=== PATIENT | female | born 1930 | race Caucasian/White ===

== ENCOUNTER 2017-04-11 13:09 | Observation (INO) | payer MEDICARE, OTHER ==
--- NOTE | 2017-04-11 14:09 | RAD ---
INDICATION: Ataxia. COMPARISON: Comparison is made with a prior CT of the brain from September 24, 2002. TECHNIQUE: Contiguous axial sections of the brain were obtained from the skull base to the vertex without contrast. FINDINGS: The ventricles, cisterns and sulci are enlarged consistent with diffuse atrophy. No significant focal abnormality or mass effect is seen. There is no evidence for hemorrhage. No significant focal osseous abnormality is seen. The visualized portion of the paranasal sinuses and mastoid air cells appear clear. IMPRESSION: NO EVIDENCE FOR ACUTE INTRACRANIAL ABNORMALITY.
[2017-04-11 15:10] LABS: Hematocrit 39 % (35-47); Mean Corpuscular HGB Conc 34 g/dl (31-36); Mean Corpuscular Hemoglobin 30 pg (27-31); Mean Corpuscular Volume 89 fL (80-97); Mean Platelet Volume 8 um3 (7.4-10.4); Red Blood Count 4.34 10^6/ul (4.0-5.4); Red Cell Distribution Width 14 % (10.5-15); White Blood Count 15.8 10^3/ul (3.5-10.8)
[2017-04-11 15:26] LABS: Troponin I 0.18 ng/mL (<0.04)
[2017-04-11 15:52] LABS: TSH (Thyroid Stimulating Horm) 0.33 mcIU/mL (0.34-5.60)
[2017-04-11 16:27] LABS: Albumin 4.3 g/dL (3.2-5.2); BUN/Creatinine Ratio 25.5 (8-20); Calcium 9.5 mg/dL (8.6-10.3); EGFR African American 60.6 (>60); EGFR Non-African American 47.1 (>60); Potassium 3.6 mmol/L (3.5-5.0); Total Bilirubin 0.6 mg/dL (0.2-1.0); Total Protein 7.3 g/dL (6.4-8.9)
--- NOTE | 2017-04-11 16:37 | RAD ---
INDICATION: Weakness. COMPARISON: Comparison is made with a prior chest x-ray study from October 24, 2006. TECHNIQUE: AP and lateral views of the chest were obtained. FINDINGS: Cardiac and mediastinal contours appear within normal limits. The lungs are hyperinflated and clear. No pleural effusion is seen. The patient appears to be status post left axillary node dissection. IMPRESSION: NO EVIDENCE FOR ACTIVE CARDIOPULMONARY DISEASE.
[2017-04-11 16:55] LABS: Urine Bacteria Absent (Absent); Urine Bilirubin Negative (Negative); Urine Glucose Negative (Negative); Urine Nitrite Negative (Negative)
[2017-04-11 17:22] LABS: Benzodiazepine Urine Screen None Detected (None Detect)
--- NOTE | 2017-04-11 17:47 | ED ---
Gail Patiño Abhishek, scribed for Ozzie Sinha MD on 04/11/17 at 1354 . Lower Extremity - HPI Summary HPI Summary: his patient is a 87 year old F presenting to [facility] with a chief complaint of weakness in the lower extremity since last night. Symptoms aggravated by nothing. Symptoms alleviated by nothing. Patient reports non-ambulatory, edema in the left arm, pain in the back (tail bone). Pt states she has been feeling wobbly, could not get up And her leg feels like they are wrapped in parafilm. Pt reports she fell in the living room today an hour ago. PMHx includes myalgia, osteoporosis, arthritis, and Stage 1 Breast cancer. 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 [employer] Mechanism Of Injury: Fall From A Standing Position - one hour ago Onset of Pain: Days Onset/Duration: Hours - Since last night Severity Initially: Mild Severity Currently: Mild Pain Intensity: 4 Pain Scale Used: 0-10 Numeric Timing: Constant Location: Other - Weakness primarily in lower extremities Associated Signs And Symptoms: Positive: Bruising - edema s/p fall, Weakness - lower extremities, Dizziness Aggravating Factor(s): Nothing Alleviating Factor(s): Nothing - Allergies/Home Medications Allergies/Adverse Reactions: Allergies Allergy/AdvReac Type Severity Reaction Status Date / Time No Known Allergies Allergy Verified 04/11/17 13:16 PMH/Surg Hx/FS Hx/Imm Hx Musculoskeletal History: Reports: Hx Osteoporosis, Hx Scoliosis, Other Musculoskeletal History EENT History: Reports: Other - Negative Glaucoma Neurological History: Denies: Hx Headaches, Other Neuro Impairments/Disorders - Cancer History Cancer Type, Location and Year: Stage 1 Breast Cancer Hx Radiation Therapy: Yes - 6 WEEKS Infectious Disease History: No Infectious Disease History: Denies: Traveled Outside the [place] in Last 30 Days - Social History Alcohol Use: None Substance Use Type: Reports: None Smoking Status (MU): Never Smoked Tobacco Review of Systems Constitutional: Negative Eyes: Negative ENT: Negative Cardiovascular: Negative Respiratory: Negative Gastrointestinal: Negative Genitourinary: Negative Positive: Myalgia - lower back (occyx), Edema - edema on her arm s/p fall, Other - Pt states her leg feels like they are wrapped in parafilm. Skin: Negative Positive: Weakness - lower extermitis (both); Pt states she has been feeling wobbly, could not get up s/p fall Psychological: Normal All Other Systems Reviewed And Are Negative: Yes Physical Exam - Summary Physical Exam Summary: Appearance: Well-appearing, no pain distress IF BMI > 30 = obese Skin: Warm, dry, color reflects adequate perfusion Head/face: Nml head/face Eyes: Nml eyes ENT: Nml ENT Neck: Supple, non-tender Respiratory: CTA, breath sound present Cardiovascular: RRR Abdomen: Abd soft, non-tender, Bowel: Bowel sounds + Musculoskeletal: Weak with her proximal leg muscles Neurological: Unsteady on her feet Psychiatric: Nml psychiatric, affect/mood appropriate Triage Information Reviewed: Yes Vital Signs On Initial Exam: Initial Vitals Temp Pulse Resp BP Pulse Ox 97.6 F 110 17 130/62 97 04/11/17 13:14 04/11/17 13:14 04/11/17 13:14 04/11/17 13:14 04/11/17 13:14 Vital Signs Reviewed: Yes - Ham Coma Scale Coma Scale Total: 15 Diagnostics - Vital Signs Vital Signs Temp Pulse Resp BP Pulse Ox 04/11/17 13:14 97.6 F 110 17 130/62 97 - Laboratory Lab Results: Lab Results 04/11/17 04/11/17 04/11/17 Range/Units 14:51 14:51 14:51 WBC 15.8 H (3.5-10.8) 10^3/ul RBC 4.34 (4.0-5.4) 10^6/ul Hgb 13.0 (12.0-16.0) g/dl Hct 39 (35-47) % MCV 89 (80-97) fL MCH 30 (27-31) pg MCHC 34 (31-36) g/dl RDW 14 (10.5-15) % Plt Count 274 (150-450) 10^3/ul MPV 8 (7.4-10.4) um3 Neut % (Auto) 86.2 H (38-83) % Lymph % (Auto) 4.6 L (25-47) % [place] % (Auto) 8.5 (1-9) % Eos % (Auto) 0 (0-6) % Baso % (Auto) 0.7 (0-2) % Absolute Neuts (auto) 13.6 H (1.5-7.7) 10^3/ul Absolute Lymphs (auto) 0.7 L (1.0-4.8) 10^3/ul Absolute Monos (auto) 1.4 H (0-0.8) 10^3/ul Absolute Eos (auto) 0 (0-0.6) 10^3/ul Absolute Basos (auto) 0.1 (0-0.2) 10^3/ul Absolute Nucleated RBC 0 10^3/ul Nucleated RBC % 0 INR (Anticoag Therapy) (0.89-1.11) Sodium 140 (133-145) mmol/L Potassium 3.6 (3.5-5.0) mmol/L Chloride 106 (101-111) mmol/L Carbon Dioxide 23 (22-32) mmol/L Anion Gap 11 (2-11) mmol/L BUN 28 H (6-24) mg/dL Creatinine 1.10 H (0.51-0.95) mg/dL Est GFR ( Amer) 60.6 (>60) Est GFR (Non-Af Amer) 47.1 (>60) BUN/Creatinine Ratio 25.5 H (8-20) Glucose 113 H (70-100) mg/dL Lactic Acid 1.9 (0.5-2.0) mmol/L Calcium 9.5 (8.6-10.3) mg/dL Total Bilirubin 0.60 (0.2-1.0) mg/dL AST 68 H (13-39) U/L ALT 22 (7-52) U/L Alkaline Phosphatase 95 (34-104) U/L Troponin I 0.18 H* (<0.04) ng/mL Total Protein 7.3 (6.4-8.9) g/dL Albumin 4.3 (3.2-5.2) g/dL Globulin 3.0 (2-4) g/dL Albumin/Globulin Ratio 1.4 (1-3) TSH 0.33 L (0.34-5.60) mcIU/mL Urine Color Urine Appearance Urine pH (5-9) Ur Specific [place] (1.010-1.030) Urine Protein (Negative) Urine Ketones (Negative) Urine Blood (Negative) Urine Nitrate (Negative) Urine Bilirubin (Negative) Urine Urobilinogen (Negative) Ur Leukocyte Esterase (Negative) Urine WBC (Auto) (Absent) Urine RBC (Auto) (Absent) Ur Squamous Epith Cells (Absent) Urine Bacteria (Absent) Urine Glucose (Negative) Urine Opiates Screen (None Detect) Ur Barbiturates Screen (None Detect) Ur Phencyclidine Scrn (None Detect) Ur Amphetamines Screen (None Detect) U Benzodiazepines Scrn (None Detect) Urine Cocaine Screen (None Detect) U Cannabinoids Screen (None Detect) 04/11/17 04/11/17 04/11/17 Range/Units 14:51 16:39 16:39 WBC (3.5-10.8) 10^3/ul RBC (4.0-5.4) 10^6/ul Hgb (12.0-16.0) g/dl Hct (35-47) % MCV (80-97) fL MCH (27-31) pg MCHC (31-36) g/dl RDW (10.5-15) % Plt Count (150-450) 10^3/ul MPV (7.4-10.4) um3 Neut % (Auto) (38-83) % Lymph % (Auto) (25-47) % [place]he % (Auto) (1-9) % Eos % (Auto) (0-6) % Baso % (Auto) (0-2) % Absolute Neuts (auto) (1.5-7.7) 10^3/ul Absolute Lymphs (auto) (1.0-4.8) 10^3/ul Absolute Monos (auto) (0-0.8) 10^3/ul Absolute Eos (auto) (0-0.6) 10^3/ul Absolute Basos (auto) (0-0.2) 10^3/ul Absolute Nucleated RBC 10^3/ul Nucleated RBC % INR (Anticoag Therapy) 0.92 (0.89-1.11) Sodium (133-145) mmol/L Potassium (3.5-5.0) mmol/L Chloride (101-111) mmol/L Carbon Dioxide (22-32) mmol/L Anion Gap (2-11) mmol/L BUN (6-24) mg/dL Creatinine (0.51-0.95) mg/dL Est GFR ( Amer) (>60) Est GFR (Non-Af Amer) (>60) BUN/Creatinine Ratio (8-20) Glucose (70-100) mg/dL Lactic Acid (0.5-2.0) mmol/L Calcium (8.6-10.3) mg/dL Total Bilirubin (0.2-1.0) mg/dL AST (13-39) U/L ALT (7-52) U/L Alkaline Phosphatase (34-104) U/L Troponin I (<0.04) ng/mL Total Protein (6.4-8.9) g/dL Albumin (3.2-5.2) g/dL Globulin (2-4) g/dL Albumin/Globulin Ratio (1-3) TSH (0.34-5.60) mcIU/mL Urine Color Yellow Urine Appearance Clear Urine pH 6.0 (5-9) Ur Specific [place] 1.013 (1.010-1.030) Urine Protein 1+(30 mg/dl) H (Negative) Urine Ketones Trace H (Negative) Urine Blood 2+ H (Negative) Urine Nitrate Negative (Negative) Urine Bilirubin Negative (Negative) Urine Urobilinogen Negative (Negative) Ur Leukocyte Esterase Negative (Negative) Urine WBC (Auto) Trace(0-5/hpf) (Absent) Urine RBC (Auto) Trace(0-2/hpf) (Absent) Ur Squamous Epith Cells Present H (Absent) Urine Bacteria Absent (Absent) Urine Glucose Negative (Negative) Urine Opiates Screen None detected (None Detect) Ur Barbiturates Screen Presumptive positive H (None Detect) Ur Phencyclidine Scrn None detected (None Detect) Ur Amphetamines Screen None detected (None Detect) U Benzodiazepines Scrn None detected (None Detect) Urine Cocaine Screen None detected (None Detect) U Cannabinoids Screen None detected (None Detect) Result Diagrams: 04/11/17 14:51 04/11/17 14:51 Lab Statement: Any lab studies that have been ordered have been reviewed, and results considered in the medical decision making process. - CT Brain CT CT Interpretation Completed By: Radiologist - Brain CT reveals :NO EVIDENCE FOR ACUTE INTRACRANIAL ABNORMALITY. ED physician has reviewed this radiology report and agrees. Lower Extremity Course/Dx - Course Course Of Treatment: Ms. Merida was a very difficult historian. The best I can tell is that she has generalized weakness and has fallen twice today. Her WBCs were up a bit and her troponin was in the indeterminant range. She is being admitted to the hospitalists. - Diagnoses Provider Diagnoses: Weakness generalized Discharge - Discharge Plan Condition: Stable Disposition: ADMITTED TO [facility] The documentation as recorded by the Gail mckeon Abhishek accurately reflects the service I personally performed and the decisions made by me, Ozzie Sinha MD.
[2017-04-11] MEDS ORDERED: Enoxaparin(*) 30 MG/0.3 ML SYR SUBCUT SCH (18:00)
[2017-04-11] MEDS ORDERED: Aspirin TAB* 325 MG PO ONE (18:14)
[2017-04-11 19:34] LABS: C Reactive Protein 51.86 mg/L (< 5.00)
[2017-04-11] MEDS: predniSONE TAB* 20 MG PO SCH (20:20)
--- NOTE | 2017-04-11 21:05 | HP ---
CC: Dr. Trujillo * HISTORY AND PHYSICAL: DATE OF ADMISSION: 04/11/17 PRIMARY CARE PHYSICIAN: Dr. Trujillo. CHIEF COMPLAINT: Weakness. HISTORY OF PRESENT ILLNESS: The patient is very tangential, history is difficult to obtain, assisted somewhat with her friend who is at the bedside. Ms. Merida is an 87-year-old female with a past medical history of hyperlipidemia, osteoporosis, breast cancer and what sounds like polymyalgia rheumatica, who presents to the hospital with weakness - he states significantly worsened overnight. The patient says her "legs do not want to work" and that she was able to get to bed okay last night, but when she woke up in the middle of the night, she had problems with coordination and could not get her legs to cooperate in her words. She began crawling on the floor, trying to get to the telephone. She states she thinks she was on the floor for 1 to 2 hours. Denies any significant pain, although did sustain some superficial bruises to her arms when she was crawling on the ground. When the patient was late for buddhist, her neighbor came over and found her on the floor. They called 911 and when EMS came, the patient declined coming to the hospital despite encouragement from her friend. EMS got up and walked her around. She states that she felt very wobbly when she walked, again a problem with coordination. Denied any lightheadedness or sensation that the room was spinning around her. Denies any unilateral weakness. No slurred speech or difficulty swallowing. Shortly after EMS left, the patient fell again, sustaining a small bruise to her face. At this point, her friend insisted she come to the hospital for further evaluation. The patient had reports of recent cough and cold. No fever, chills, chest pain , shortness of breath. States she has been constipated. Indicates possible dysuria, although it is difficult to pin her down on this. No blood present in her stool and urine. She states that she saw Dr. Trujillo in January at which time, he refilled some of her medications. She states she only takes prednisone and pain medication at home that are prescribed. It seems as though she has been trying to stretch her medications out, often taking a quarter tab or less of her prednisone and has now been taking it daily. She states that prior to seeing Dr. Trujillo in January, she had not seen a doctor in about 3 years. She reports intermittently having some pain in her legs, but none significantly at this time. In the emergency department, the patient was found to be mildly tachycardic and she incidentally had an elevated troponin of 0.18 and leukocytosis of 15. Due to the constellation of symptoms and weakness, hospitalist service consulted to consider the patient for admission. PAST MEDICAL HISTORY: Polymyalgia rheumatica, breast cancer, hyperlipidemia, and osteoporosis. PAST SURGICAL HISTORY: Tonsillectomy and adenoidectomy, appendectomy, D and C, hysterectomy, partial thyroidectomy, cataract surgery, lumpectomy. HOME MEDICATIONS: 1. [place] 5/325 one tablet by mouth every 6 hours as needed for pain. 2. Prednisone unclear what the patient's dose is supposed to be or what she currently takes. ALLERGIES: The patient reports no known drug allergies. FAMILY HISTORY: Significant for mother who of old age in . Her father who of old age in . SOCIAL HISTORY: The patient has never smoked cigarettes. Denies any alcohol or illicit drug use. She is very active in [employer]. It seems that she needs a fair amount of assistance at home, but has a good support network with her friends and neighbors who often provide food and assistance to her. REVIEW OF SYSTEMS: A 12-point review of systems is negative except for that as noted in the HPI. PHYSICAL EXAMINATION GENERAL: The patient is an elderly female, lying in bed, in no apparent distress. VITAL SIGNS: On admission, temperature 97.6, heart rate of 110, respiratory rate of 17, O2 saturation 97% on room air, and blood pressure 130/62. HEENT: Head: Normocephalic. Slight ecchymosis to the left cheek. Eyes: Pupils equal, round, and reactive to light and accommodation. Anicteric sclerae. ENT: Moist mucous membranes. No cervical adenopathy. LUNGS: Clear to auscultation bilaterally. No wheezes, rales, or rhonchi. CARDIOVASCULAR: Tachycardia. S1 and S2 present. No murmurs, gallops, or rubs. ABDOMEN: Soft, nontender, nondistended. Bowel sounds hyperactive. EXTREMITIES: No cyanosis, clubbing, or edema. NEURO: The patient is alert and oriented x3. Cranial nerves II through XII intact. The patient has 5/5 strength throughout bilateral upper extremities. Sensation intact and symmetric in upper extremities. The patient with 3+ strength in bilateral hip flexors. Distal strength in the lower extremities seems to be 5/5. Sensation is intact and symmetric. The patient had difficulty pulling herself up into a sitting position with the use of handrails. Did not assess gait, but Dr. Sinha stated that once he assisted the patient sitting up in bed and standing, she was able to walk around albeit unsteadily. DIAGNOSTIC STUDIES/LAB DATA: White blood cell count of 15.8, hematocrit of 39 , and platelets of 274. INR of 0.92. Sodium of 140, potassium 3.6, chloride of 106, carbon dioxide of 23, BUN of 28, creatinine 1.1, glucose of 113, lactic acid 1.9. AST of 68, alk phos of 95. Troponin 0.18, TSH of 0.33. CRP and CK pending. Repeat troponin pending. UA with 1+ protein, trace ketones, 2+ blood, squamous epithelial cells present. Chest x-ray, personally reviewed, shows no acute disease. CT of the head shows no acute changes. EKG shows sinus tachycardia and rSr prime that has been present in the past. ASSESSMENT AND PLAN: Acute on chronic weakness, troponin elevation in an 87- year- old female with past medical history of polymyalgia rheumatica, hyperlipidemia, osteoporosis, and breast cancer. 1. Weakness. Again, history is very difficult to obtain. She does not seem to have a clear infectious etiology going on at this time. This could certainly be an exacerbation of her polymyalgia rheumatica leading to worsening weakness, but it seemed she has been not taking her prednisone as prescribed and not following up with her physician. An ESR and CRP are pending at this time. I am going to trial the patient on 20 mg of prednisone to see if she has any significant improvement. This potentially could be related to a cardiac issue as well. The patient has denied any chest pain or significant cardiac symptoms. Although, her troponin and AST are elevated. I have asked the lab to rerun the troponin to make sure that is accurate. If it is indeed elevated, we will continue to trend those. We will check an echocardiogram in the morning and monitor the patient on telemetry. We will give her a full dose aspirin now and start her on 81 mg daily. She is also tachycardic. Does not seem to be overly dehydrated. We will order PT and OT eval as well as a social work consult. 2. Polymyalgia rheumatica. Prednisone as above. 3. DVT prophylaxis. Lovenox subcu. 4. Code status. The patient is full code. TIME SPENT: Total time spent on this admission 60 minutes with over half the time spent [id number] with the patient in counseling and coordinating care. [id number]/[facility] #: [id number] MTDDaylin
[2017-04-12 06:03] LABS: Hematocrit 35 % (35-47); Hemoglobin 11.6 g/dl (12.0-16.0); Mean Corpuscular HGB Conc 34 g/dl (31-36); Mean Corpuscular Hemoglobin 30 pg (27-31); Mean Corpuscular Volume 90 fL (80-97); Mean Platelet Volume 8 um3 (7.4-10.4); Red Blood Count 3.86 10^6/ul (4.0-5.4); Red Cell Distribution Width 14 % (10.5-15); White Blood Count 12.5 10^3/ul (3.5-10.8)
[2017-04-12 06:25] LABS: BUN/Creatinine Ratio 29.5 (8-20); Calcium 8.4 mg/dL (8.6-10.3); EGFR African American 59.3 (>60); EGFR Non-African American 46.1 (>60); Potassium 4.1 mmol/L (3.5-5.0)
[2017-04-12] MEDS ORDERED: Aspirin Low Dose CHEW TAB* 81 MG PO SCH (09:00)
[2017-04-12] MEDS: predniSONE TAB* 20 MG PO SCH (09:32)
--- NOTE | 2017-04-12 15:59 | ECHO ---
Patient: PIPPA COSTELLO [facility] Rec#: [id number] : 1930 Date: 04/12/2017 Age: 87y Height: 154.94 cm / 61.0 in Weight: 44.45 kg / 98.0 lbs Sex: F BSA: 1.4 Room#: 440 Admit Date#: 04/11/2017 Type: Inpatient Referring: Jose C Genao Reading: Best Mcmahon MD Assessment Technician: Lydia Pinto RDCS CC: Sidney Trujillo MD Transthoracic Echocardiogram Indication: Elevated Troponins BP: 115/53 HR: 82 Rhythm: NSR Findings History: HLD,breast cancer,polymyalgia rheumatica. Technical Comments: The study quality is fair. Completed at 1535. Left Ventricle: The left ventricular chamber size is decreased. Global left ventricular wall motion and contractility are within normal limits. There is normal left ventricular systolic function. The estimated ejection fraction is 55-60%. Abnormal left ventricular diastolic function is observed. Left Atrium: The left atrial chamber size is normal. Right Ventricle: The right ventricular cavity size is normal. The right ventricular global systolic function is normal. Right Atrium: The right atrial cavity size is normal. Aortic Valve: The aortic valve is trileaflet. There is no evidence of aortic valve thickening. There is mild aortic regurgitation. There is no evidence of aortic stenosis. Mitral Valve: The mitral valve leaflets are mildly thickened. There is mild to moderate mitral regurgitation. There is no evidence of mitral stenosis. Tricuspid Valve: The tricuspid valve leaflets are normal. There is mild tricuspid regurgitation. There is evidence of borderline pulmonary hypertension. There is no tricuspid stenosis. Pulmonic Valve: The pulmonic valve appears normal. There is no evidence of pulmonic regurgitation. Pericardium: The pericardium appears normal. Aorta: There is no dilatation of the ascending aorta. The aortic arch is not well visualized. There is no dilation of the aortic root. Pulmonary Artery: The main pulmonary artery appears normal. Venous: The venous system is not well visualized. Conclusions Global left ventricular wall motion and contractility are within normal limits. There is normal left ventricular systolic function. The estimated ejection fraction is 55-60%. The right ventricular global systolic function is normal. There is mild aortic regurgitation. There is mild to moderate mitral regurgitation. There is mild tricuspid regurgitation. There is evidence of borderline pulmonary hypertension. The pericardium appears normal. Measurements Name Value Normal Range RVIDd (AP) 2D 2.5 cm (0.9 - 2.6) RVDdMajor (2D) 2.7 cm (2.2 - 4.4) RAd ISD 4CH 4.5 cm (3.4 - 4.9) RA (A4C)W 3.6 cm (2.9 - 4.6) IVSd (2D) 0.6 cm (0.6 - 1) LVPWd (2D) 0.8 cm (0.6 - 1) LVIDd (2D) 2.5 cm (3.6 - 5.4) LVIDs (2D) 1.9 cm - LV FS (2D) 36 % (25 - 45) Aortic Annulus 1.5 cm (1.4 - 2.6) Ao root diameter (2D) 2.9 cm (2.1 - 3.5) Ascending Ao 2.8 cm (2.1 - 3.4) LA dimension (AP) 2D 2.4 cm (2.3 - 3.8) LAd ISD 4CH 4.5 cm (2.9 - 5.3) LA ISD 4CH W 3.8 cm (2.5 - 4.5) Name Value Normal Range LA ESV SP 4CH (A/L) 26 ml - LA ESV SP 2CH (A/L) 16 ml - LA ESV BP (A/L) 21 ml - LA ESV SP 4CH (MOD) 20 ml - LA ESV SP 2CH (MOD) 13 ml - Name Value Normal Range MV E-wave Vmax 0.7 m/sec - MV deceleration time 172 msec - MV A-wave Vmax 0.9 m/sec - MV E:A ratio 0.83 ratio - LV septal e' Vmax 0.05 m/sec - LV lateral e' Vmax 0.07 m/sec - LV E:e' septal ratio 14 ratio - LV E:e' lateral ratio 10 ratio - Name Value Normal Range AV Vmax 1 m/sec - AV VTI 21.3 cm - AV peak gradient 4.06 mmHg - AV mean gradient 2.38 mmHg - LVOT Vmax 0.9 m/sec - LVOT VTI 20.1 cm - LVOT peak gradient 3.37 mmHg - LVOT mean gradient 1.54 mmHg - AR PHT 429 msec - AR peak gradient 38.51 mmHg - Name Value Normal Range TR Vmax 2.5 m/sec - TR peak gradient 25 mmHg - RAP 8 mmHg - RVSP 33 mmHg - Name Value Normal Range PV Vmax 0.6 m/sec - PV peak gradient 1.51 mmHg -
[2017-04-12 17:14] VITALS: BP 136/65
--- NOTE | 2017-04-13 11:31 | DS ---
AMENDED REPORT NOW INCLUDES COSIGNER DESIGNATION - ESIGNED BEFORE ADJUSTMENTS CC: Sidney Trujillo MD * DISCHARGE SUMMARY: DATE OF ADMISSION: 04/11/17 DATE OF DISCHARGE: 04/12/17 PRIMARY CARE PROVIDER: Sidney Trujillo MD. DISCHARGING PROVIDER: ZAHIRA Galvez. SUPERVISING PHYSICIAN: Emerita Guevara MD * (DICTATED BY ZAHIRA GALVEZ) DISCHARGE DIAGNOSES: 1. Weakness, likely secondary to exacerbation of polymyalgia rheumatica. 2. Elevated troponin. SECONDARY DISCHARGE DIAGNOSES: 1. History of breast cancer. 2. Hyperlipidemia. 3. Suspect mild dementia. DISCHARGE MEDICATIONS: 1. Prednisone 20 mg p.o. daily. 2. Hydrocodone/acetaminophen 5/325 one tablet p.o. q. 4 hours as needed for pain. HOSPITAL IMAGIN. CT of the brain shows no acute process. 2. Chest x-ray shows no acute process. 3. EKG shows a normal sinus rhythm. 4. Transthoracic echo essentially unremarkable with an EF of 55% to 60% without significant valvular disease. HOSPITAL COURSE: This is an 87-year-old female with history of polymyalgia rheumatica, on chronic steroid therapy, who presented to the emergency department with complaints of weakness. She reports her "legs did not work" and she had fallen at home. She was found by a neighbor. EMS was initially called and she refused hospital transport and she subsequently fell shortly thereafter and her neighbor encouraged her to accept an ER evaluation. Initial labs demonstrated a moderate leukocytosis with a white blood cell count of 15, 800 and a troponin of 0.81 with a CRP of approximately 52. TSH is slightly depressed at 0.33. Remainder of chemistry panel was largely unremarkable. The patient was quite resistant to the idea of a hospital admission, but it was quite clear that her weakness was significant. The patient denied any recent acute illness, but states that she had been trying to take herself off of prednisone, taking just very small quantities of her prednisone tablet. She was difficult to obtain an accurate history from, however. She specifically denied any chest pain or shortness of breath, accompanying her fall. There was no associated syncope. The patient was started on 20 mg of prednisone daily at the time of admission. She underwent an echocardiogram, which was unremarkable. She was evaluated by physical therapy, which indicated that she did relatively well. Able to go from a sitting to standing position without assistance and walk with the use of a walker with a fairly steady gait. The patient reported that her weakness had improved and she very much desired discharge from the hospital. The patient was quite resistant to accept any assistive devices or home nursing care. DISPOSITION AND FOLLOWUP PLAN: The patient's acute presentation appears to be related to an exacerbation of her PMR and her dose of prednisone has been increased to 20 mg daily, which can be tapered over the next several weeks per her primary care provider and her symptom management. No other changes were made to her home medications. Referral to visiting nurse service was made on her behalf. She was also made an appointment with her primary care provider for approximately 1 week from discharge, which she is strongly encouraged to keep. She also received explicit instructions at the time of discharge to please use her walker with all activities. TIME SPENT: Greater than 30 minutes was spent on this discharge. ZAHIRA GALVEZ [id number]/[facility] #: [id number] ESSIE
== END 2017-04-12 17:00 | disposition home or self-care (01) ==
LOC: ED 13:09 → MEDTELE 17:49
PROVIDERS: ADMIT Hospitalist; ATTEND Internal Medicine
DX: R53.1 Weakness (principal); R94.8 Abnormal results of function studies of other organs and systems; M35.3 Polymyalgia rheumatica; E78.5 Hyperlipidemia, unspecified; Z85.3 Personal history of malignant neoplasm of breast; I34.0 Nonrheumatic mitral (valve) insufficiency
CPT/HCPCS: 36415; 70450; 71020; 80048; 80053; 80307; 81003; 81015; 82550; 83605; 84443; 84484; 85025; 85610; 85652; 86140; 93005; 93306; 96372; 99284; A9270-GY; G0378; G8978-GP-CI; G8979-GP-CH; G8980-GP-CI; G8987-GO-CI; G8988-GO-CH; J1650; J7512

== ENCOUNTER 2019-10-21 13:08 | Inpatient (IN) | payer MEDICARE, OTHER ==
[2019-10-21] MEDS ORDERED: Morphine 4 MG/ML VIAL (1 ml) IV ONE (13:15)
[2019-10-21] MEDS ORDERED: NS 0.9% 1000 ml BAG 1,000 ML IV ONE (13:15)
[2019-10-21 13:58] LABS: Hematocrit 44 % (35-47); Hemoglobin 14.7 g/dL (12.0-16.0); Mean Corpuscular HGB Conc 33 g/dL (31-36); Mean Corpuscular Hemoglobin 30 pg (27-31); Mean Corpuscular Volume 92 fL (80-97); Mean Platelet Volume 8.5 fL (7.4-10.4); Platelet Count 273 10^3/uL (150-450); Red Blood Count 4.83 10^6 /uL (3.70-4.87); Red Cell Distribution Width 14 % (10-15); White Blood Count 19.5 10^3/uL (3.5-10.8)
[2019-10-21 14:00] LABS: ABS Lymphocytes 0.4 10^3/ul (1.0-4.8); ABS Monocytes 1.6 10^3/ul (0-0.8)
[2019-10-21 14:08] LABS: ALT 18 U/L (7-52); Albumin 3.8 g/dL (3.2-5.2); Albumin/Globulin Ratio 1.5 (1-3); Alkaline Phosphatase 59 U/L (34-104); BUN/Creatinine Ratio 37.7 (8-20); Blood Urea Nitrogen 40 mg/dL (6-24); CO2 Carbon Dioxide 20 mmol/L (22-32); Calcium 8.3 mg/dL (8.6-10.3); Chloride 108 mmol/L (101-111); Creatine Kinase 828 U/L (10-223); EGFR African American 59.2 (>60); EGFR Non-African American 48.9 (>60); Globulin 2.5 g/dL (2-4); Glucose 122 mg/dL (70-100); Sodium 142 mmol/L (135-145); Total Protein 6.3 g/dL (6.4-8.9)
[2019-10-21] MEDS ORDERED: Iodixanol (CONTRAST) 320 MG/ML 100 ML SDV IV ONE (14:13)
[2019-10-21 14:19] LABS: INR 1.07 (0.82-1.09)
[2019-10-21 14:31] LABS: Alcohol, S < 10 mg/dL (<10)
[2019-10-21 14:48] LABS: Troponin I 0.07 ng/mL (<0.03)
[2019-10-21 15:06] LABS: Anion Gap 14 mmol/L (2-11)
[2019-10-21] MEDS ORDERED: Piperacillin/Tazobac ADVAN(*) 3.375 GM in NS 0.9% 100 ml BAG 100 ML IVPB ONE (15:38)
[2019-10-21] MEDS ORDERED: NS 0.9% 500 ml BAG 500 ML IV ONE (16:06)
[2019-10-21] MEDS ORDERED: Ondansetron 4 mg VIAL 2 MG/ML 2 ml VIAL IV PRN (16:12)
[2019-10-21] MEDS ORDERED: NS 0.9% 1000 ml BAG 1,000 ML IV SCH (16:15)
[2019-10-21 16:33] LABS: Urine Appearance Turbid; Urine Bilirubin Negative (Negative); Urine Blood 2+ (Negative); Urine Color Yellow; Urine Glucose 1+(50 mg/dL) (Negative); Urine Ketones 1+ (Negative); Urine Nitrite Negative (Negative); Urine Protein 1+(30 mg/dL) (Negative); Urine Specific Gravity 1.033 (1.010-1.030); Urine Urobilinogen Negative (Negative)
[2019-10-21 16:36] LABS: Urine Bacteria Absent (Absent); Urine Red Blood Cell 3+(>10/hpf) (Absent); Urine Squamous Epithelial Cell Present (Absent); Urine Transitional Epithelial Present (Absent); Urine White Blood Cell 3+(>20/hpf) (Absent)
[2019-10-21 16:59] LABS: C Reactive Protein 48.21 mg/L (<8.01)
[2019-10-21] MEDS ORDERED: Enoxaparin 40 MG/0.4 ML SYR(*) SUBCUT SCH (17:00)
[2019-10-21] MEDS ORDERED: Enoxaparin 30 MG/0.3 ML SYR(*) SUBCUT SCH (17:00)
[2019-10-21 17:34] LABS: Potassium Redraw 4.4 mmol/L (3.5-5.0)
[2019-10-21 17:39] LABS: Creatine Kinase 911 U/L (10-223)
[2019-10-21 17:44] LABS: Troponin I 0.07 ng/mL (<0.03)
[2019-10-21 20:56] LABS: Troponin I 0.06 ng/mL (<0.03)
[2019-10-21] MEDS: cefTRIAXone ADVAN VIAL 1 GM in NS 0.9% 50 ML 50 ML IVPB SCH (22:29)
[2019-10-22 04:38] LABS: ABS Basophils 0.1 10^3/ul (0-0.2); ABS Lymphocytes 0.3 10^3/ul (1.0-4.8); ABS Monocytes 1.2 10^3/ul (0-0.8); Hematocrit 38 % (35-47); Hemoglobin 12.7 g/dL (12.0-16.0); Lymphocyte % 1.7 %; Mean Corpuscular HGB Conc 33 g/dL (31-36); Mean Corpuscular Hemoglobin 30 pg (27-31); Mean Corpuscular Volume 91 fL (80-97); Mean Platelet Volume 8.3 fL (7.4-10.4); Platelet Count 244 10^3/uL (150-450); Red Cell Distribution Width 13 % (10-15); White Blood Count 19.8 10^3/uL (3.5-10.8)
[2019-10-22 04:54] LABS: Calcium 7.6 mg/dL (8.6-10.3); EGFR Non-African American 56.2 (>60); Potassium 3.6 mmol/L (3.5-5.0)
[2019-10-22] MEDS ORDERED: cefTRIAXone ADVAN VIAL 1 GM in NS 0.9% 50 ML 50 ML IVPB SCH (06:00)
[2019-10-22] MEDS: NS 0.9% 1000 ml BAG 1,000 ML IV SCH (15:31)
[2019-10-22] MEDS: Enoxaparin 30 MG/0.3 ML SYR(*) SUBCUT SCH (21:36)
[2019-10-22] MEDS: cefTRIAXone ADVAN VIAL 1 GM in NS 0.9% 50 ML 50 ML IVPB SCH (21:36)
[2019-10-23 06:45] LABS: ABS Lymphocytes 1.3 10^3/ul (1.0-4.8); Eosinophil % 0.4 %; Hematocrit 33 % (35-47); Hemoglobin 11.2 g/dL (12.0-16.0); Lymphocyte % 12.8 %; Mean Corpuscular HGB Conc 34 g/dL (31-36); Mean Corpuscular Hemoglobin 31 pg (27-31); Mean Corpuscular Volume 91 fL (80-97); Platelet Count 211 10^3/uL (150-450); Red Blood Count 3.64 10^6 /uL (3.70-4.87); Red Cell Distribution Width 14 % (10-15); White Blood Count 9.8 10^3/uL (3.5-10.8)
[2019-10-23 07:02] LABS: BUN/Creatinine Ratio 30.2 (8-20); Calcium 7.3 mg/dL (8.6-10.3); EGFR African American 75.4 (>60); EGFR Non-African American 62.3 (>60); Potassium 3.5 mmol/L (3.5-5.0)
[2019-10-23 18:51] LABS: BUN/Creatinine Ratio 24.2 (8-20); EGFR African American 64.1 (>60); EGFR Non-African American 52.9 (>60); Potassium 3.8 mmol/L (3.5-5.0)
[2019-10-23] MEDS: cefTRIAXone ADVAN VIAL 1 GM in NS 0.9% 50 ML 50 ML IVPB SCH (21:29)
[2019-10-23] MEDS: Enoxaparin 30 MG/0.3 ML SYR(*) SUBCUT SCH (21:29)
[2019-10-23] MEDS: NS 0.9% 1000 ml BAG 1,000 ML IV SCH (21:30)
[2019-10-24] MEDS: Metoprolol Tartrate 5 mg VIAL 5 ml VIAL (1 mg/ml) IV PRN (00:08)
[2019-10-24] MEDS: Enoxaparin 30 MG/0.3 ML SYR(*) SUBCUT SCH (20:28)
[2019-10-25] MEDS ORDERED: NS 0.9% 1000 ml BAG 1,000 ML IV SCH (18:00)
[2019-10-25] MEDS: cefTRIAXone ADVAN VIAL 1 GM in NS 0.9% 50 ML 50 ML IVPB SCH (18:30)
[2019-10-25] MEDS: Enoxaparin 30 MG/0.3 ML SYR(*) SUBCUT SCH (21:03)
[2019-10-26] MEDS ORDERED: Morphine 2 MG/ML SYRINGE IV ONE (04:32)
[2019-10-26] MEDS ORDERED: Morphine 2 MG/ML SYRINGE ONE (04:33)
[2019-10-26 06:44] LABS: ABS Eosinophils 0.1 10^3/ul (0-0.6); ABS Lymphocytes 1.6 10^3/ul (1.0-4.8); ABS Monocytes 0.7 10^3/ul (0-0.8); Eosinophil % 1.4 %; Hematocrit 36 % (35-47); Hemoglobin 12.2 g/dL (12.0-16.0); Lymphocyte % 24.1 %; Mean Corpuscular HGB Conc 34 g/dL (31-36); Mean Corpuscular Hemoglobin 31 pg (27-31); Mean Corpuscular Volume 91 fL (80-97); Mean Platelet Volume 8.1 fL (7.4-10.4); Platelet Count 236 10^3/uL (150-450); Red Blood Count 3.94 10^6 /uL (3.70-4.87); Red Cell Distribution Width 14 % (10-15); White Blood Count 6.6 10^3/uL (3.5-10.8)
[2019-10-26 07:01] LABS: BUN/Creatinine Ratio 25.8 (8-20); Calcium 6.6 mg/dL (8.6-10.3); EGFR African American 102.3 (>60); EGFR Non-African American 84.5 (>60)
[2019-10-26 07:04] LABS: Potassium 2.7 mmol/L (3.5-5.0)
[2019-10-26] MEDS ORDERED: Potassium Chloride LIQUID 20 MEQ/15 ML LIQUID PO ONE ×2 (07:30→12:00)
[2019-10-26 07:45] LABS: Magnesium 1.6 mg/dL (1.9-2.7)
[2019-10-26] MEDS: KCL 20 MEQ/100 ML IVPREMIX 20 MEQ/100 ML BAG IV SCH ×3 (08:43→17:19)
[2019-10-26] MEDS: cefTRIAXone ADVAN VIAL 1 GM in NS 0.9% 50 ML 50 ML IVPB SCH (20:56)
[2019-10-26] MEDS: Enoxaparin 30 MG/0.3 ML SYR(*) SUBCUT SCH (21:22)
[2019-10-27] MEDS: Metoprolol Tartrate 5 mg VIAL 5 ml VIAL (1 mg/ml) IV PRN (08:40)
[2019-10-27] MEDS: cefTRIAXone ADVAN VIAL 1 GM in NS 0.9% 50 ML 50 ML IVPB SCH (20:41)
[2019-10-27] MEDS: Enoxaparin 30 MG/0.3 ML SYR(*) SUBCUT SCH (21:16)
[2019-10-27 23:37] LABS: BUN/Creatinine Ratio 20.5 (8-20); Calcium 9.1 mg/dL (8.6-10.3); EGFR African American 73.4 (>60); EGFR Non-African American 60.6 (>60); Potassium 4.2 mmol/L (3.5-5.0)
[2019-10-28] MEDS: Metoprolol Tartrate 5 mg VIAL 5 ml VIAL (1 mg/ml) IV PRN (04:11)
[2019-10-28 06:24] LABS: Hematocrit 34 % (35-47); Hemoglobin 11.6 g/dL (12.0-16.0); Mean Corpuscular HGB Conc 34 g/dL (31-36); Mean Corpuscular Hemoglobin 31 pg (27-31); Mean Corpuscular Volume 91 fL (80-97); Mean Platelet Volume 7.9 fL (7.4-10.4); Platelet Count 260 10^3/uL (150-450); Red Blood Count 3.76 10^6 /uL (3.70-4.87); Red Cell Distribution Width 14 % (10-15); White Blood Count 6.5 10^3/uL (3.5-10.8)
[2019-10-28 06:42] LABS: BUN/Creatinine Ratio 21.4 (8-20); Calcium 8.6 mg/dL (8.6-10.3); EGFR African American 77.4 (>60); Potassium 4.1 mmol/L (3.5-5.0)
[2019-10-28] MEDS ORDERED: HYDROcodone/ACETAMIN 5/325 mg TAB PO PRN (08:30)
[2019-10-28] MEDS: Polyethylene Glycol 3350 17 GM PACKET PO SCH (15:13)
[2019-10-28] MEDS: cefTRIAXone ADVAN VIAL 1 GM in NS 0.9% 50 ML 50 ML IVPB SCH (18:17)
[2019-10-28] MEDS: Enoxaparin 30 MG/0.3 ML SYR(*) SUBCUT SCH (22:08)
[2019-10-29] MEDS: Polyethylene Glycol 3350 17 GM PACKET PO SCH (09:45)
[2019-10-29 15:45] LABS: Magnesium 2.1 mg/dL (1.9-2.7)
[2019-10-29] MEDS: Enoxaparin 30 MG/0.3 ML SYR(*) SUBCUT SCH (21:03)
[2019-10-30] MEDS ORDERED: Mineral Oil ENEMA 118 ML/BOTTLE BOTTLE PR ONE (01:30)
[2019-10-30] MEDS: Polyethylene Glycol 3350 17 GM PACKET PO SCH (08:50)
[2019-10-30 08:52] LABS: Urine Appearance Clear; Urine Bilirubin Negative (Negative); Urine Blood 1+ (Negative); Urine Color Yellow; Urine Glucose 1+(50 mg/dL) (Negative); Urine Ketones Negative (Negative); Urine Nitrite Negative (Negative); Urine Protein Negative (Negative); Urine Specific Gravity 1.017 (1.010-1.030); Urine Urobilinogen Negative (Negative)
[2019-10-30 08:58] LABS: Urine Bacteria Absent (Absent); Urine Red Blood Cell 3+(>10/hpf) (Absent); Urine White Blood Cell Absent (Absent)
[2019-10-30 11:29] VITALS: BP 143/64
[2019-10-30] MEDS ORDERED: Magnesium CITRATE LIQ 300 ML BTL PO ONE (12:38)
== END 2019-10-30 12:07 | DRG 565 ==
LOC: ED 13:08 → MEDTELE 16:10 → MED 10-25 17:27
PROVIDERS: ADMIT Nurse Practitioner Acute Care; ATTEND Internal Medicine